=== PATIENT | male | born 1965 | race African-American/Black ===

== ENCOUNTER 2022-12-05 15:10 | Inpatient (IN) ==
[2022-12-05 16:03] LABS: ABS Eosinophils 0.1 10^3/ul (0-0.6); ABS Lymphocytes 1.4 10^3/ul (1.0-4.8); ABS Monocytes 0.5 10^3/ul (0-0.8); ABS Neutrophils 3.1 10^3/ul (1.5-7.7); Eosinophil % 2.6 %; Hematocrit 48 % (42-52); Hemoglobin 15.4 g/dL (14.0-18.0); Lymphocyte % 26.8 %; Mean Corpuscular Hemoglobin 28 pg (27-31); Mean Corpuscular Hgb Conc 32 g/dL (31-36); Mean Corpuscular Volume 86 fL (80-94); Mean Platelet Volume 8.9 fL (7.4-10.4); Nucleated Red Blood Cells % 0.2; Platelet Count 151 10^3/uL (150-450); Red Blood Count 5.58 10^6 /uL (4.18-5.48); Red Cell Distribution Width 15 % (10-15); White Blood Count 5.1 10^3/uL (3.5-10.8)
[2022-12-05 17:20] LABS: Albumin 4.5 g/dL (3.2-5.2); Albumin/Globulin Ratio 1.4 (1-3); Calcium 9.6 mg/dL (8.6-10.3); Creatinine, Serum 15.57 mg/dL (0.67-1.17); Globulin 3.3 g/dL (2-4); Total Bilirubin 0.6 mg/dL (0.2-1.0); Total Protein 7.8 g/dL (6.4-8.9); eGFR CKD-EPI 3.2 (>60)
[2022-12-05 17:23] LABS: Potassium 5.3 mmol/L (3.5-5.0)
[2022-12-05] MEDS ORDERED: Labetalol IV 5 MG/ML 20 ml VIAL IV PUSH ONE ×3 (17:51→20:03)
[2022-12-05 18:14] LABS: High Sensitivity Troponin 1 Hr 47 pg/mL (<20)
[2022-12-05] MEDS ORDERED: Nitro 2% OINT (Nitroglycerin) 1 INCH/PAK TOPICAL ONE (19:31)
[2022-12-05] MEDS ORDERED: Dextrose 50% Syringe 50 ml 25 GM/50 ML SYRINGE IV PUSH PRN (20:53)
[2022-12-06] MEDS: Heparin 5000 UNITS/ML 1 mL VIAL SUBCUT SCH ×4 (01:22→21:44)
[2022-12-06 08:49] LABS: Albumin 3.9 g/dL (3.2-5.2); Albumin/Globulin Ratio 1.3 (1-3); Calcium 8.9 mg/dL (8.6-10.3); Creatinine, Serum 17.13 mg/dL (0.67-1.17); Globulin 2.9 g/dL (2-4); Magnesium 2.5 mg/dL (1.9-2.7); Total Bilirubin 0.6 mg/dL (0.2-1.0); Total Protein 6.8 g/dL (6.4-8.9); eGFR CKD-EPI 2.9 (>60)
[2022-12-06 08:53] LABS: Potassium 5.9 mmol/L (3.5-5.0)
[2022-12-06] MEDS ORDERED: Dextrose 50% Syringe 50 ml 25 GM/50 ML SYRINGE IV PUSH ONE (09:01)
[2022-12-06] MEDS ORDERED: Albumin Human 25% 25 GM/100 ML BTL IV PRN (10:07)
[2022-12-06] MEDS ORDERED: NS 0.9% 1000 ml BAG 100 ML IV PRN (10:07)
[2022-12-06] MEDS ORDERED: NS 0.9% 1000 ml BAG 200 ML IV PRN (10:07)
[2022-12-06] MEDS: SODIUM ZIRCONIUM CYCLOSILICATE 5 GM PACKET PO SCH ×2 (11:23→17:22)
[2022-12-06 15:20] LABS: Calcium 8.9 mg/dL (8.6-10.3); Creatinine, Serum 17.56 mg/dL (0.67-1.17); eGFR CKD-EPI 2.8 (>60)
[2022-12-06 15:22] LABS: Potassium 5.5 mmol/L (3.5-5.0)
[2022-12-06] MEDS: Heparin 1,000 UNIT/ML 10 ml (10,000 UNITS) CATHLAB/DIALYSIS DIALYSIS ONE ×3 (16:20→18:31)
[2022-12-06 18:44] LABS: Hepatitis B Surface Antigen Nonreactive (Nonreactive)
[2022-12-06 18:49] LABS: Hepatitis B Core IgM Nonreactive (Nonreactive)
[2022-12-06 19:02] LABS: Hepatitis B Surface Ab Not Immune (Immune)
[2022-12-07] MEDS: Heparin 5000 UNITS/ML 1 mL VIAL SUBCUT SCH (05:38)
[2022-12-07 05:43] VITALS: BP 160/88
[2022-12-07 06:44] LABS: Hematocrit 42 % (42-52); Hemoglobin 13.7 g/dL (14.0-18.0); Mean Corpuscular Hemoglobin 28 pg (27-31); Mean Corpuscular Hgb Conc 32 g/dL (31-36); Mean Corpuscular Volume 85 fL (80-94); Platelet Count 128 10^3/uL (150-450); Red Blood Count 4.96 10^6 /uL (4.18-5.48); Red Cell Distribution Width 16 % (10-15); White Blood Count 3.7 10^3/uL (3.5-10.8)
[2022-12-07 07:00] LABS: Calcium 8.7 mg/dL (8.6-10.3); Creatinine, Serum 14.14 mg/dL (0.67-1.17); eGFR CKD-EPI 3.6 (>60)
[2022-12-07 07:01] LABS: Potassium 5.2 mmol/L (3.5-5.0)
[2022-12-10] MEDS ORDERED: cloNIDine 0.3 MG PATCH 0.3 MG/24 HR 7 DAY PATCH TRANSDERM SCH (09:00)
== END 2022-12-07 11:00 | disposition home or self-care (01) | DRG 304 ==
LOC: ED 15:10 → EDHOLD 19:35 → SUATTDRO 19:35 → MEDTELE 12-06 00:50 → MED 12-06 23:59
PROVIDERS: ADMIT Student in an Organized Health Care Education/Training Program; ATTEND Internal Medicine